=== PATIENT | female | born 1995 | race Caucasian/White ===

== ENCOUNTER 2018-11-01 20:50 | Outpatient (REF) | payer MEDICAID, SELFPAY ==
[2018-11-01 21:51] LABS: Absolute Basophil Count 0.01 k/cumm (0.0-0.2); Absolute Eosinophil Count 0.09 k/cumm (0.0-0.7); Absolute Lymphocyte Count 2.63 k/cumm (1.2-3.4); Absolute Monocyte Count 0.58 k/cumm (0.11-0.7); Absolute Neutrophil Count 3.29 k/cumm (1.2-6.7); Basophils % 0.2; Eosinophils % 1.4; HCT 38.7 % (36.0-46.0); HGB 12.9 g/dL (12.0-15.5); Lymphocytes % 39.8; Mean Corp. HGB Concentration 33.3 g/dL (32.0-36.0); Mean Corpuscular Hemoglobin 30.1 pg (27.0-33.0); Mean Corpuscular Volume 90.2 fL (80-95); Mean Platelet Volume 11.2 fL (8.0-11.0); Monocytes % 8.8; Neutrophils % 49.8; Platelet Count 331 x1000/uL (130-400); RBC 4.29 m/cumm (4.00-5.20); RBC Distribution Width 13.1 % (11.7-14.6)
[2018-11-01 22:24] LABS: ALT 87 U/L (12-78); AST 35 U/L (15-37); Albumin 4.2 g/dL (3.4-5.0); Alkaline Phosphatase 112 U/L (46-116); BUN 18 mg/dL (7-18); Bilirubin, Total 0.3 mg/dL (0.2-1.0); CREATININE 0.78 mg/dL (0.55-1.02); Calcium 9.5 mg/dL (8.5-10.1); Chloride 103 mmol/L (98-107); Glucose 81 mg/dL (70-100); Potassium 4.1 mmol/L (3.5-5.1); Sodium 139 mmol/L (136-145); Total Protein 7.9 g/dL (6.4-8.2)
[2018-11-03 10:31] LABS: HIV-1/2 Ag & Ab Screen Negative (NEGAT)
[2018-11-03 10:33] LABS: HBs Antibody, Quant 134.1 mIU/mL; Hep A Total Ab w Rflx IgM Negative (NEGAT); Hepatitis B Surface Ab Positive; Hepatitis B Surface Ag Negative (NEGAT); Hepatitis C Ab w Rflx HCV PCR Negative (NEGAT)
[2018-11-03 12:45] LABS: Chlamydia Result Negative; GC Result Negative; Specimen Description URINE
[2018-11-03 13:03] LABS: Syphilis Serology (RPR) Negative (Negative)
[2018-11-03 13:52] LABS: Hep B Core Antibody Positive (NEGAT)
== END 2018-11-01 21:10 ==
LOC: NCHCN 20:50
PROVIDERS: Visit Provider Nurse Practitioner Family
DX: Z11.3 Encounter for screening for infections with a predominantly sexual mode of transmission (principal); K76.9 Liver disease, unspecified; Z11.59 Encounter for screening for other viral diseases; Z11.4 Encounter for screening for human immunodeficiency virus [HIV]
CPT/HCPCS: 80053; 86704; 86706; 86709; 86803; 87340; 87389; 87491; 87591; 85025; 86592

== ENCOUNTER 2018-11-03 03:02 | Outpatient (CLI) | payer MEDICAID, SELFPAY ==
--- NOTE | 2018-11-06 14:39 | HOLTER_ITS ---
DATE OF DICTATION: November 06, 2018 STUDY INDICATION: Palpitations. REQUESTING PROVIDER: Joon Hutton DNP, [place] FINDINGS: The patient was monitored for two days. Baseline sinus rhythm. Average heart rate 73 bpm, range 50-154 bpm. Ten PVC's. Four PAC's. One 3-beat atrial run, 139 bpm. No patient events. FINAL INTERPRETATION: Minor atrial arrhythmias of no significance.
== END 2018-11-03 03:22 ==
PROVIDERS: Visit Provider Nurse Practitioner Family
DX: R00.2 Palpitations (principal); I49.1 Atrial premature depolarization
CPT/HCPCS: 93225

== ENCOUNTER 2018-11-03 15:00 | Outpatient (CLI) | payer MEDICAID, SELFPAY ==
--- NOTE | 2018-11-03 18:08 | DI.RAD_ITS ---
SYMPTOM/DIAGNOSIS: BACK PAIN, M54.9, SCOLIOSIS, M41.9, RT HAND PAIN, M79.641 AP SPINE FOR SCOLIOSIS: AP views of the spine were obtained and show a minimal biconvex thoracolumbar scoliosis. No underlying bony abnormality is seen. RIGHT HAND: Three views were obtained. There is an apparent old healed fracture of the deformity of the base of the first metacarpal. No acute abnormality is seen.
== END 2018-11-03 15:20 ==
PROVIDERS: Visit Provider Nurse Practitioner Family
DX: M54.6 Pain in thoracic spine (principal); M41.05 Infantile idiopathic scoliosis, thoracolumbar region; M79.641 Pain in right hand
CPT/HCPCS: 72081; 73130

== ENCOUNTER 2018-11-06 08:46 | Outpatient (CLI) | payer MEDICAID, SELFPAY | END 2018-11-06 09:06 | PROVIDERS: Visit Provider Nurse Practitioner Family | DX: R00.2 Palpitations (principal); I49.1 Atrial premature depolarization | CPT/HCPCS: 93226 ==